=== PATIENT | male | born 1960 | race Caucasian/White ===

== ENCOUNTER 2023-06-11 12:44 | Inpatient (IN) | payer OTHER, BC ==
[~2023-06-11] VITALS: Ht 185.4 cm; Wt 97.1 kg
[2023-06-11 13:23] VITALS: BP_SYST 117; PULSE 74; RESP 18; TEMP 98.5; O2SAT 97
[2023-06-11] MEDS ORDERED: LOSA100T23 PO (13:23)
[2023-06-11] MEDS ORDERED: ASPI-524 PO (13:23)
[2023-06-11] MEDS ORDERED: ATOR40TA68 PO (13:23)
[2023-06-11] MEDS ORDERED: METF-379 PO (13:23)
[2023-06-11] MEDS ORDERED: HYDR25TA4 PO (13:23)
[2023-06-11] MEDS ORDERED: METO50TA16 PO (13:23)
[2023-06-11] MEDS ORDERED: GABA600T PO (13:23)
[2023-06-11 15:38] LABS: BASOPHILS # (AUTO) 0.1 K/uL (0.0-0.2); BASOPHILS % (AUTO) 0.4 % (0.0-2.0); EOSINOPHILS # (AUTO) 0.1 K/uL (0.0-0.4); EOSINOPHILS % (AUTO) 0.9 % (0.0-4.0); HEMATOCRIT 31.5 % (36-54); HEMOGLOBIN 10.6 g/dL (14.0-18.0); LYMPHOCYTES # (AUTO) 1.5 K/uL (1.0-5.5); LYMPHOCYTES % (AUTO) 11.5 % (20.5-51.5); MEAN CORPUSCULAR HEMOGLOBIN 30 pg (27-31); MEAN CORPUSCULAR HGB CONC 34 % (32-36); MEAN CORPUSCULAR VOLUME 90 fL (79.0-98.0); MONOCYTES # (AUTO) 1.4 K/uL (0.0-1.0); MONOCYTES % (AUTO) 10.9 % (1.7-9.3); NEUTROPHILS # (AUTO) 9.9 K/uL (1.8-7.7); NEUTROPHILS % (AUTO) 76.3 % (40.0-70.0); PLATELET COUNT (AUTO) 526 K/uL (130-430); RED BLOOD CELL COUNT(AUTO) 3.49 MIL/uL (4.2-6.2); RED CELL DISTRIBUTION WIDTH 14.2 % (9.0-15.0); WHITE BLOOD COUNT (AUTO) 12.9 K/uL (4.8-10.8)
[2023-06-11 15:53] LABS: ALBUMIN 2.5 g/dL (3.4-4.8); CALCIUM 8.7 mg/dL (8.4-11.0); CREATININE 0.81 mg/dL (0.55-1.30); POTASSIUM 4.4 mmol/L (3.5-5.1); TOTAL BILIRUBIN 0.3 mg/dL (0.0-1.0)
[2023-06-11] MEDS ORDERED: HYDROcodone/ACETAMIN 5-325 MG TAB (NORCO/ VICODIN) PO ONE (16:30)
[2023-06-11] MEDS ORDERED: FUROSEMIDE 40 MG/4 ML VIAL IVP ONE (16:30)
[2023-06-11 16:56] LABS: BILIRUBIN,URINE NEGATIVE (NEGATIVE); CLARITY/URINE Clear (CLEAR); COLOR,URINE YELLOW (YELLOW); GLUCOSE,URINE NEGATIVE (NEGATIVE); KETONES,URINE NEGATIVE (NEGATIVE); NITRITE, URINE NEGATIVE (NEGATIVE); PROTEIN URINE 2+ (NEGATIVE); UROBILINOGEN,URINE 0.2 (0.2-1.0)
[2023-06-11 16:57] LABS: BLOOD, URINE TRACE (NEGATIVE); LEUKOCYTE ESTERASE ,URINE NEGATIVE (NEGATIVE)
[2023-06-11 17:07] LABS: BACTERIA,URINE RARE /HPF (None Seen); MUCUS,URINE None Seen /LPF (None Seen); RBC,URINE 0-3 /HPF (0-3); WBC,URINE NONE SEEN /HPF (0-3)
[2023-06-11 17:16] LABS: BARBITURATE, URINE NEGATIVE (NEG <=200); BENZODIAZEPINE, URINE NEGATIVE (NEG <=150); CANNABINOID, URINE NEGATIVE (NEG <=50); COCAINE, URINE NEGATIVE (NEG <=150); METHAMPHETAMINES SCREEN,URINE NEGATIVE (NEG <=500); OPIATE, URINE POSITIVE (NEG <=100); PHENCYCLIDINE SCREEN,URINE NEGATIVE (NEG <=25); UR TRICYCLIC ANTIDEPRESSANTS NEGATIVE (NEG <=300); URINE AMPHETAMINE NEGATIVE (NEG <=500); URINE METHADONE NEGATIVE (NEG <=200); URINE OXYCODONE SCREEN POSITIVE (NEG <=100); URINE PROPOXYPHENE SCREEN NEGATIVE (NEG <=300)
[2023-06-11] MEDS ORDERED: NALOXONE HCL 0.4 MG/ML AMP (NARCAN) IVP PRN (17:30)
[2023-06-11] MEDS: HYDROcodone/ACETAMIN 10-325 MG TAB PO PRN (20:30)
[2023-06-11] MEDS: metFORMIN HCL 500 MG TABLET PO SCH (21:16)
[2023-06-11] MEDS: ENOXAPARIN SODIUM 40 MG/0.4 ML SYRINGE SUBCUT SCH (21:16)
[2023-06-11] MEDS: GABAPENTIN 300 MG CAPSULE PO SCH (21:17)
[2023-06-11] MEDS: METOPROLOL TARTRATE 50 MG TABLET PO SCH (21:17)
[2023-06-11 21:23] VITALS: BP_SYST 168; PULSE 72; RESP 18; TEMP 96.8; O2SAT 97
[2023-06-12] VITALS (7 sets, daily range): BP systolic 134–150; PULSE 69–96; RESP 15–18; TEMP 96.5–97.2; O2SAT 96–98
[2023-06-12] MEDS: HYDROcodone/ACETAMIN 10-325 MG TAB PO PRN ×6 (01:04→21:18)
[2023-06-12 04:24] LABS: BASOPHILS # (AUTO) 0.1 K/uL (0.0-0.2); BASOPHILS % (AUTO) 0.5 % (0.0-2.0); EOSINOPHILS # (AUTO) 0.1 K/uL (0.0-0.4); EOSINOPHILS % (AUTO) 1.1 % (0.0-4.0); HEMOGLOBIN 9.9 g/dL (14.0-18.0); LYMPHOCYTES # (AUTO) 1.2 K/uL (1.0-5.5); LYMPHOCYTES % (AUTO) 10.6 % (20.5-51.5); MEAN CORPUSCULAR HEMOGLOBIN 30 pg (27-31); MEAN CORPUSCULAR HGB CONC 33 % (32-36); MEAN CORPUSCULAR VOLUME 90 fL (79.0-98.0); MONOCYTES # (AUTO) 1.3 K/uL (0.0-1.0); NEUTROPHILS # (AUTO) 8.4 K/uL (1.8-7.7); NEUTROPHILS % (AUTO) 75.8 % (40.0-70.0); PLATELET COUNT (AUTO) 445 K/uL (130-430); RED BLOOD CELL COUNT(AUTO) 3.32 MIL/uL (4.2-6.2); RED CELL DISTRIBUTION WIDTH 14.5 % (9.0-15.0); WHITE BLOOD COUNT (AUTO) 11.1 K/uL (4.8-10.8)
[2023-06-12 04:40] LABS: INR 1.1 (0.80-1.20)
[2023-06-12 04:44] LABS: ALBUMIN 2.1 g/dL (3.4-4.8); CALCIUM 8.2 mg/dL (8.4-11.0); CREATININE 0.8 mg/dL (0.55-1.30); POTASSIUM 4.2 mmol/L (3.5-5.1); TOTAL BILIRUBIN 0.5 mg/dL (0.0-1.0); TOTAL PROTEIN, SERUM 6.1 g/dL (6.4-8.3)
[2023-06-12] MEDS ORDERED: LOSARTAN POTASSIUM 50 MG TABLET (COZAAR) PO SCH (09:00)
[2023-06-12] MEDS: ASPIRIN 81 MG TAB.CHEW PO SCH (09:50)
[2023-06-12] MEDS: GABAPENTIN 300 MG CAPSULE PO SCH ×3 (09:51→21:17)
[2023-06-12] MEDS: POTASSIUM CHLORIDE 20 MEQ TAB.PRT.SR PO SCH (09:51)
[2023-06-12] MEDS: ATORVASTATIN 20 MG TABLET PO SCH ×2 (09:51→10:10)
[2023-06-12] MEDS: FUROSEMIDE 40 MG/4 ML VIAL IVP SCH (09:57)
[2023-06-12] MEDS: metFORMIN HCL 500 MG TABLET PO SCH (09:59)
[2023-06-12] MEDS: METOPROLOL TARTRATE 50 MG TABLET PO SCH ×2 (10:00→21:17)
[2023-06-12] MEDS: HYDROCHLOROTHIAZIDE 25 MG TABLET (HCTZ) PO SCH (10:08)
[2023-06-12] MEDS ORDERED: SACUBITRIL/VALSARTAN 24 MG-26 MG 1 TABLET PO ONE (11:00)
[2023-06-12] MEDS: SACUBITRIL/VALSARTAN 24 MG-26 MG 1 TABLET PO SCH (21:17)
[2023-06-12] MEDS: ENOXAPARIN SODIUM 40 MG/0.4 ML SYRINGE SUBCUT SCH (21:18)
[2023-06-12] MEDS: INSULIN LISPRO SLIDING SCALE 100 UNITS/ML, 3 ML VIAL (humaLOG) SUBCUT PRN (21:27)
[2023-06-13 01:23] VITALS: BP_SYST 125; PULSE 68; RESP 18; TEMP 96.8; O2SAT 97
[2023-06-13] MEDS: HYDROcodone/ACETAMIN 10-325 MG TAB PO PRN ×4 (01:23→13:30)
[2023-06-13 05:26] LABS: BASOPHILS % (AUTO) 0.3 % (0.0-2.0); EOSINOPHILS # (AUTO) 0.2 K/uL (0.0-0.4); EOSINOPHILS % (AUTO) 1.5 % (0.0-4.0); HEMOGLOBIN 9.9 g/dL (14.0-18.0); LYMPHOCYTES # (AUTO) 1.4 K/uL (1.0-5.5); LYMPHOCYTES % (AUTO) 11.8 % (20.5-51.5); MEAN CORPUSCULAR HEMOGLOBIN 31 pg (27-31); MEAN CORPUSCULAR HGB CONC 34 % (32-36); MEAN CORPUSCULAR VOLUME 90 fL (79.0-98.0); MONOCYTES # (AUTO) 1.3 K/uL (0.0-1.0); MONOCYTES % (AUTO) 10.7 % (1.7-9.3); NEUTROPHILS # (AUTO) 9.2 K/uL (1.8-7.7); NEUTROPHILS % (AUTO) 75.7 % (40.0-70.0); PLATELET COUNT (AUTO) 494 K/uL (130-430); RED BLOOD CELL COUNT(AUTO) 3.24 MIL/uL (4.2-6.2); RED CELL DISTRIBUTION WIDTH 14.6 % (9.0-15.0); WHITE BLOOD COUNT (AUTO) 12.1 K/uL (4.8-10.8)
[2023-06-13 05:46] LABS: ALBUMIN 1.9 g/dL (3.4-4.8); CREATININE 0.74 mg/dL (0.55-1.30); POTASSIUM 4.2 mmol/L (3.5-5.1); THYROID STIMULATING HORMONE 1.17 uIu/mL (0.34-4.82); TOTAL BILIRUBIN 0.3 mg/dL (0.0-1.0); TOTAL PROTEIN, SERUM 5.8 g/dL (6.4-8.3)
[2023-06-13 07:50] VITALS: BP_SYST 130; PULSE 66; RESP 16; TEMP 96.6; O2SAT 97
[2023-06-13] MEDS: FUROSEMIDE 40 MG/4 ML VIAL IVP SCH (08:07)
[2023-06-13] MEDS: ASPIRIN 81 MG TAB.CHEW PO SCH (08:07)
[2023-06-13] MEDS: GABAPENTIN 300 MG CAPSULE PO SCH (08:07)
[2023-06-13] MEDS: POTASSIUM CHLORIDE 20 MEQ TAB.PRT.SR PO SCH (08:08)
[2023-06-13] MEDS: METOPROLOL TARTRATE 50 MG TABLET PO SCH (08:09)
[2023-06-13] MEDS: HYDROCHLOROTHIAZIDE 25 MG TABLET (HCTZ) PO SCH (08:09)
[2023-06-13] MEDS: SACUBITRIL/VALSARTAN 24 MG-26 MG 1 TABLET PO SCH (08:10)
[2023-06-13] MEDS ORDERED: ATORVASTATIN 20 MG TABLET PO ONE (10:15)
[2023-06-13] MEDS: INSULIN LISPRO SLIDING SCALE 100 UNITS/ML, 3 ML VIAL (humaLOG) SUBCUT PRN (11:31)
[2023-06-13 12:00] VITALS: BP_SYST 128; PULSE 67; RESP 17; TEMP 96.7; O2SAT 96
[2023-06-13 15:38] VITALS: BP_SYST 121; PULSE 70; RESP 16; TEMP 98; O2SAT 97
[2023-06-14] MEDS ORDERED: ATORVASTATIN 20 MG TABLET PO SCH (09:00)
== END 2023-06-13 16:10 | disposition home or self-care (01) | DRG 291 ==
LOC: SED 12:44 → STU 17:09
PROVIDERS: ADMIT Internal Medicine; ATTEND Internal Medicine
DX: I11.0 Hypertensive heart disease with heart failure (principal); I50.43 Acute on chronic combined systolic (congestive) and diastolic (congestive) heart failure; E87.1 Hypo-osmolality and hyponatremia; F11.20 Opioid dependence, uncomplicated; E11.9 Type 2 diabetes mellitus without complications; I42.0 Dilated cardiomyopathy; D64.9 Anemia, unspecified; G89.4 Chronic pain syndrome; F10.20 Alcohol dependence, uncomplicated; Y90.9 Presence of alcohol in blood, level not specified; M54.9 Dorsalgia, unspecified; Z79.82 Long term (current) use of aspirin; Z79.899 Other long term (current) drug therapy; Z79.84 Long term (current) use of oral hypoglycemic drugs; Z79.4 Long term (current) use of insulin
CPT/HCPCS: 36415; 71045; 80053; 80061; 80307; 81000; 81003; 82962; 83037; 83525; 83690; 83735; 83880; 84443; 84484; 85025; 85610-TC; 85730-TC; 93005; 93306; 93970; 96374; 99285; G0378; J1650; J1940

== ENCOUNTER → 2023-08-01 | Emergency (ER) | payer OTHER, BC ==
[~2023-08-01] VITALS: Ht 185.4 cm; Wt 98.9 kg
[~2023-08-01] MED LIST: ASPI-524 PO; ATOR40TA68 PO; GABA600T PO; HYDR25TA4 PO; HYDROcodone/ACETAMIN 7.5-325 MG TAB PO ONE; LOSA100T24 PO; METF-379 PO; METO50TA16 PO
[2023-08-01 14:38] VITALS: BP_SYST 148; PULSE 126; RESP 18; TEMP 96.5; O2SAT 98
[2023-08-01 15:31] LABS: BASOPHILS # (AUTO) 0.1 K/uL (0.0-0.2); BASOPHILS % (AUTO) 0.8 % (0.0-2.0); EOSINOPHILS # (AUTO) 0.2 K/uL (0.0-0.4); HEMATOCRIT 35.1 % (36-54); HEMOGLOBIN 11.5 g/dL (14.0-18.0); LYMPHOCYTES # (AUTO) 1.7 K/uL (1.0-5.5); LYMPHOCYTES % (AUTO) 17.6 % (20.5-51.5); MEAN CORPUSCULAR HEMOGLOBIN 30 pg (27-31); MEAN CORPUSCULAR HGB CONC 33 % (32-36); MEAN CORPUSCULAR VOLUME 90 fL (79.0-98.0); NEUTROPHILS # (AUTO) 6.9 K/uL (1.8-7.7); NEUTROPHILS % (AUTO) 69.6 % (40.0-70.0); PLATELET COUNT (AUTO) 488 K/uL (130-430); RED BLOOD CELL COUNT(AUTO) 3.89 MIL/uL (4.2-6.2); RED CELL DISTRIBUTION WIDTH 16.5 % (9.0-15.0); WHITE BLOOD COUNT (AUTO) 9.9 K/uL (4.8-10.8)
[2023-08-01 15:37] LABS: ANION GAP 5 (5-15); CALCIUM 8.5 mg/dL (8.4-11.0); CARBON DIOXIDE 26 mmol/L (23-29); CHLORIDE 92 mmol/L (98-107); CREATININE 1.03 mg/dL (0.55-1.30); GFR AFRICAN AMERICAN 94 mL/min (>90); GLUCOSE 150 mg/dL (74-106); POTASSIUM 4.1 mmol/L (3.5-5.1); SODIUM SERUM 123 mmol/L (136-145); UREA NITROGEN, BLOOD 15 mg/dL (8-21)
[2023-08-01 15:38] LABS: INR 1.1 (0.80-1.20); PROTHROMBIN TIME 11.7 SECS (9.5-12.5)
[2023-08-01 15:39] LABS: GFR NON AFRICAN-AMERICAN 78 mL/min (>90)
[2023-08-01 15:43] LABS: ALANINE AMINOTRANSFERASE 17 U/L (12-78); ALBUMIN 2.7 g/dL (3.4-4.8); ASPARTATE AMINOTRANSFERASE 20 U/L (10-37); TOTAL BILIRUBIN 0.3 mg/dL (0.0-1.0); TOTAL PROTEIN, SERUM 6.3 g/dL (6.4-8.3)
[2023-08-01 21:27] VITALS: BP_SYST 114; PULSE 124; RESP 18; TEMP 96.5; O2SAT 96
== END | disposition home or self-care (01) ==
LOC: SED 14:15
DX: R60.1 Generalized edema (principal); E87.1 Hypo-osmolality and hyponatremia; Z79.899 Other long term (current) drug therapy
CPT/HCPCS: 36415; 71045; 80053; 82962; 83880; 84484; 85025; 85610-TC; 85730-TC; 93005; 99283